=== PATIENT | female | born 1990 | race African-American/Black ===

== ENCOUNTER 2018-01-26 17:39 | Emergency (ER) | payer OTHER ==
[~2018-01-26] VITALS: Ht 160 cm; Wt 63.5 kg
[2018-01-27] MEDS ORDERED: CIPRO500 MG PO (02:14)
[2018-01-27] MEDS ORDERED: IRON1TAB4 PO (02:14)
[2018-01-27] MEDS ORDERED: METOCLOPRAMIDE10 MG PO (02:14)
[2018-01-27] MEDS ORDERED: PEPCID AC20 MG PO (02:14)
== END 2018-01-27 02:24 | disposition home or self-care (01) ==
LOC: ER 17:39
DX: K29.60 Other gastritis without bleeding (principal); N91.1 Secondary amenorrhea; N39.0 Urinary tract infection, site not specified; D64.89 Other specified anemias

== ENCOUNTER 2025-01-27 19:37 | Emergency (ER) | payer OTHER ==
[~2025-01-27] VITALS: Ht 157.5 cm; Wt 65.8 kg
[~2025-01-27 19:37] MED LIST: CIPRO500 MG PO; IRON1TAB4 PO; METOCLOPRAMIDE10 MG PO; PEPCID AC20 MG PO
[2025-01-27] MEDS ORDERED: KETOROLAC TROMETHAMINE 30 MG VIAL IM STA (20:05)
[2025-01-27] MEDS ORDERED: DEXAMETHASONE SODIUM PHOSPHATE 4 MG/ML VIAL IM STA (20:05)
[2025-01-27] MEDS ORDERED: ORPHENADRINE CITRATE 30 MG/ML AMPUL IM STA (20:05)
[2025-01-27] MEDS ORDERED: METAXALONE800 MG PO (20:34)
[2025-01-27] MEDS ORDERED: NABUMETONE750 MG PO (20:34)
[2025-01-27] MEDS ORDERED: KETOROLAC TROMETHAMINE 30 MG VIAL ONE (20:39)
[2025-01-27] MEDS ORDERED: ORPHENADRINE CITRATE 30 MG/ML AMPUL ONE (20:39)
[2025-01-27] MEDS ORDERED: DEXAMETHASONE SODIUM PHOSPHATE 4 MG/ML VIAL ONE (20:40)
== END 2025-01-27 20:59 | disposition home or self-care (01) ==
LOC: ER 19:38
DX: M54.2 Cervicalgia (principal); E03.8 Other specified hypothyroidism; E16.1 Other hypoglycemia